=== PATIENT | female | born 1995 | race Caucasian/White ===

== ENCOUNTER 2024-03-05 16:59 | Inpatient (IN) | payer OTHER ==
[2024-03-05 18:07] LABS: Basophils % (A) 0 %; Eosinophils % (A) 0 %; HCT 34.5 % (34.0-46.0); HGB 11.4 gm/dL (11.4-16.0); Lymphocytes # (A) 2.5 k/uL (1.0-4.8); Lymphocytes % (A) 22 %; MCH 31.3 pg (25.0-35.0); MCHC 32.9 g/dL (31.0-37.0); MCV 94.9 fL (80.0-100.0); Mean Platelet Volume 9.6; Monocytes # (A) 0.6 k/uL (0-1.0); Monocytes % (A) 6 %; Neutrophils # (A) 8.1 k/uL (1.3-7.7); Neutrophils % (A) 70 %; Platelet Count 240 k/uL (150-450); RBC 3.64 m/uL (3.80-5.40); RDW 13.7 % (11.5-15.5); WBC 11.5 k/uL (3.8-10.6)
--- NOTE | 2024-03-05 18:30 | P.HPOB ---
History of Present Illness H&P Date: 03/05/24 Chief Complaint: Induction of labor Ms. Roberson is a 28 year old at 40 weeks gestation with EDC of 03/05/2024 by LMP consistent with 8 week US who presents for induction of labor for post- dates. Her was complicated by a 4.5mm umilibcal cord cyst that resolved by anatomy US. Cell free DNA testing was within normal limits. The patient also suffers from anxiety for which she is stable on Pristiq 25mg daily. Obstetric work-up: blood type A positive, antibody screen negative, rubella immune, VDRL non-reactive, HBsAg negative, HIV negative, HCV Ab non-reactive, gonorrhea negative, chlamydia negative, 1 hour GTT wnl, GBS negative, s/p TDap. Past Medical History History of Any Multi-Drug Resistant Organisms: None Reported Additional Past Surgical History / Comment(s): Breast reduction, septum repair Past Anesthesia/Blood Transfusion Reactions: No Reported Reaction Past Psychological History: Anxiety Smoking Status: Never smoker Medications and Allergies Home Medications Medication Instructions Recorded Confirmed Type Desvenlafaxine Succinate [Pristiq] 1 tab PO DAILY 03/05/24 03/05/24 History Vit No.179/Iron/Folic 1 tab PO DAILY 03/05/24 03/05/24 History [ Tablet] RX: Aspirin [[place] Aspirin EC] 1 tab PO DAILY 03/05/24 03/05/24 History Allergies Allergy/AdvReac Type Severity Reaction Status Date / Time No Known Allergies Allergy Verified 03/05/24 17:20 Exam Vital Signs Temp Pulse Resp BP Pulse Ox 03/05/24 17:10 98.2 F 87 16 124/82 98 Intake and Output 03/05/24 03/05/24 03/05/24 06:59 14:59 22:59 Other: Weight 71.214 kg Focused physical exam is performed. This is a healthy-appearing in no apparent distress. Breathing is non-labored. Abdomen is gravid and non-tender. Cervical exam is 1cm/50%/-3. Cooks catheter is inserted using sterile speculum. 60cc of normal saline are used to fill each balloon. Extremities non- tender and non-edematous. heart tones are reactive and reassuring on NST. Results Result Diagrams: 03/05/24 17:54 Abnormal Lab Results - Last 24 Hours (Table) 03/05/24 Range/Units 17:54 WBC 11.5 H (3.8-10.6) k/uL RBC 3.64 L (3.80-5.40) m/uL Neutrophils # 8.1 H (1.3-7.7) k/uL Assessment and Plan Assessment: 28 year old at 40 weeks gestation presenting for induction of labor Plan: Admit, clear liquid diet at midnight, cooks catheter x12 hours with low-dose pitocin, pitocin titrated per protocol after cooks is removed. IV nubain for analgesia overnight. Continuous EFM and tocometer.
[2024-03-05] MEDS ORDERED: NALBUPHINE 10 MG/ML (10 ML MDV) IV PRN (18:31)
[2024-03-05] MEDS: LACTATED RINGERS 1,000 ML IV SCH (19:01)
[2024-03-05] MEDS: OXYTOCIN 30 UNITS/500 ML NS 30 UNIT in SALINE 1 500ML.BAG IV SCH (19:01)
[2024-03-06] MEDS ORDERED: ROPIVACAINE 5 MG/ML 30 ML VIAL ONE (05:37)
[2024-03-06] MEDS ORDERED: SODIUM CHLORIDE 0.9% 250 ML BAG ONE (05:37)
[2024-03-06] MEDS ORDERED: fentaNYL (PF) 50 MCG/ML 5 ML AMP ONE (05:37)
[2024-03-06] MEDS ORDERED: LANOLIN CREAM 1 GM TUBE TOPICAL PRN (10:02)
[2024-03-06] MEDS ORDERED: IBUPROFEN 600 MG TAB PO PRN (10:02)
[2024-03-06] MEDS ORDERED: BENZOCAINE/MENTHOL SPRAY 1 GM/SPRAY AEROSOL TOPICAL PRN (10:02)
[2024-03-06] MEDS ORDERED: SIMETHICONE 80 MG CHEWABLE PO PRN (10:02)
[2024-03-06] MEDS ORDERED: HYDROCORTISONE 2.5% RECTAL CREAM 30 GM TUBE RECTAL PRN (10:02)
[2024-03-06] MEDS ORDERED: diphenhydrAMINE 50 MG/ML 1 ML VIAL IVP PRN ×2 (10:02)
[2024-03-06] MEDS ORDERED: diphenhydrAMINE 50 MG CAP PO PRN (10:02)
[2024-03-06] MEDS ORDERED: ZOLPIDEM 5 MG TAB PO PRN (10:02)
[2024-03-06] MEDS ORDERED: diphenhydrAMINE 25 MG CAP PO PRN (10:02)
[2024-03-06] MEDS ORDERED: ACETAMINOPHEN TAB 325 MG TAB PO PRN (10:02)
--- NOTE | 2024-03-06 10:02 | P.PROBDLV ---
Vaginal Delivery Note - . Vaginal Delivery Note: DATE OF SERVICE: 03/06/2024 PROCEDURE: Normal Vaginal Delivery ATTENDING: Dr. Karina Hillman MD ESTIMATED BLOOD LOSS: 400 mL FINDINGS: VMI, Apgars 9/9. Weight 6 pounds and 15 ounces. PROCEDURE: Ms. Sellers is a 28 year old at 40 weeks and 1 day presenting to labor and delivery for induction of labor for post-dates. The has been complicated by initial finding of umbilical cord cyst that spontaneously resolved. For further details, please review the admitting H&P. Cooks catheter was placed on 03/05 evening with low-dose pitocin. SROM occurred at 400 revealing clear amniotic fluid. Pitocin was then titrated per protocol. The patient receiv ed epidural anesthesia per her request. The patient was completely dilated at 856. She pushed effectively with Category I to II heart tones. A viable male infant was delivered at 943 over an intact perineum. One nuchal cord was reduced.The was placed on the maternal abdomen and bulb suctioned. The infant was noted to be spontaneously crying. Cord was clamped and cut after a 60-second delay. The infant was handed off to the pediatric team. Placenta was delivered whole with gentle cord traction at 946. Oxytocin was started to facilitate uterine tone. Uterine fundus was found to be firm and below the umbilicus upon fundal massage, yet bleeding was brisk so oxytocin was run wide open and a dose of 0.2 of IM Methergine was given. Thorough examination of the cervix, vagina, periurethral area, and perineum revealed hemostatic labial lacerations that did not require repair. The patient is stable and allowed to begin the bonding process.
[2024-03-06] MEDS: METHYLERGONOVINE 0.2 MG/ML 1 ML AMP IM ONE (10:17)
[2024-03-06] MEDS: SENNOSIDES-DOCUSATE SODIUM 1 EACH TAB PO SCH (20:04)
[2024-03-06 20:17] VITALS: RESP 16
[2024-03-07 07:00] LABS: Basophils % (A) 0 %; Eosinophils # (A) 0.1 k/uL (0-0.7); Eosinophils % (A) 0 %; HCT 27.7 % (34.0-46.0); Lymphocytes # (A) 3.7 k/uL (1.0-4.8); Lymphocytes % (A) 24 %; MCH 31.7 pg (25.0-35.0); MCHC 32.8 g/dL (31.0-37.0); MCV 96.8 fL (80.0-100.0); Mean Platelet Volume 9.7; Monocytes # (A) 0.9 k/uL (0-1.0); Monocytes % (A) 6 %; Neutrophils # (A) 10.3 k/uL (1.3-7.7); Neutrophils % (A) 67 %; Platelet Count 197 k/uL (150-450); RBC 2.86 m/uL (3.80-5.40); RDW 13.8 % (11.5-15.5); WBC 15.4 k/uL (3.8-10.6)
[2024-03-07 07:21] LABS: HGB 9.1 gm/dL (11.4-16.0)
--- NOTE | 2024-03-07 10:19 | P.DS ---
Providers Date of admission: 03/05/24 16:59 Expected date of discharge: 03/07/24 Attending physician: Karina Hillman MD Primary care physician: Astr[facility] Course: 28 year old now PPD#1 s/p normal vaginal delivery. She is doing well, minimal lochia, ambulating normally, eating and drinking, voiding normally. is going well. Infant is s/p circumcision. Reviewed restrictions including no intercourse for 6 weeks. Call office for any heavy bleeding, fevers/chills, concerns, etc. Plans to take Motrin and Tylenol OTC as needed. Already has breast pump. RTC in 6 weeks for appt. Assessment: 28 year old PPD#1 s/p NVD Patient Condition at Discharge: Good Plan - Discharge Summary Discharge Rx Participant: Yes New Discharge Prescriptions: No Action Aspirin [Fisher Aspirin EC] 1 tab PO DAILY Vit No.179/Iron/Folic [ Tablet] 1 tab PO DAILY Desvenlafaxine Succinate [Pristiq] 1 tab PO DAILY Discharge Medication List Aspirin [Fisher Aspirin EC] 1 tab PO DAILY 03/05/24 [History] Desvenlafaxine Succinate [Pristiq] 1 tab PO DAILY 03/05/24 [History] Vit No.179/Iron/Folic [ Tablet] 1 tab PO DAILY 03/05/24 [History] Follow up Appointment(s)/Referral(s): Karina Hillman MD [STAFF PHYSICIAN] - 04/19/24 3:15 pm Patient Instructions/Handouts: Vaginal Delivery (DC) Discharge Disposition: HOME SELF-CARE
[2024-03-07 12:04] VITALS: BP 111/75; PULSE 72; TEMP 97.8
[2024-03-07] MEDS ORDERED: FERROUS SULFATE 325 MG TAB PO SCH (12:30)
== END 2024-03-07 11:15 | disposition home or self-care (01) | DRG 807 ==
LOC: 4FBP 16:59
PROVIDERS: ADMIT Obstetrics & Gynecology; ATTEND Obstetrics & Gynecology
PROC: 0U7C7ZZ Dilation of Cervix, Via Natural or Artificial Opening (ICD-10-PCS; 2024-03-05)
PROC: 3E033VJ Introduction of Other Hormone into Peripheral Vein, Percutaneous Approach (ICD-10-PCS; 2024-03-05)
PROC: 10E0XZZ Delivery of Products of Conception, External Approach (ICD-10-PCS; principal; 2024-03-06)
DX: O69.81X0 Labor and delivery complicated by cord around neck, without compression, not applicable or unspecified (principal); Z37.0 Single live birth; O99.344 Other mental disorders complicating childbirth; O69.89X0 Labor and delivery complicated by other cord complications, not applicable or unspecified; O70.0 First degree perineal laceration during delivery; O48.0 Post-term pregnancy; F41.9 Anxiety disorder, unspecified; Z3A.40 40 weeks gestation of pregnancy; Z79.82 Long term (current) use of aspirin; Z79.899 Other long term (current) drug therapy
CPT/HCPCS: 85025; 86850; 86900; 86901